=== PATIENT | male | born 1995 | race Caucasian/White ===

== ENCOUNTER 2016-06-25 08:46 | Emergency (ER) | payer SELFPAY ==
[2016-06-25 08:55] VITALS: BP 140/73
[2016-06-25] MEDS ORDERED: Ketorolac INJ* 60 MG/2 ML VIAL IM ONE (09:14)
[2016-06-25] MEDS ORDERED: Diazepam TAB(*) 5 MG PO ONE (09:14)
--- NOTE | 2016-06-25 15:29 | ED ---
I, Gerry,Len, scribed for Alvarez Gonzáles MD on 06/25/16 at 0915 . Back Pain - HPI Summary HPI Summary: This 21 y/o male presents to ED for acute, intermittent mid back pain/spasm since yesterday. Pt states that he was sitting couch at the time of onset. Pt denies any dysuria or pain with BM. No back injury or fall. Pt works at [employer], and pt suggests possibility of strain at his work. Ibuprofen provides little relief. Rest make it better, and exertion or movement make it worse. Pt does not have any primary care established. - History of Current Complaint Chief Complaint: EDBackInjuryPain Stated Complaint: BACK PAIN Time Seen by Provider: 06/25/16 08:58 Hx Obtained From: Patient, Medical Records Onset/Duration: Sudden Onset, Still Present Onset/Duration: Started Days Ago, Atraumatic, Still Present Timing: Intermittent Back Pain Location: Is Discrete @ - mid back Pain Intensity: 6 Pain Scale Used: 0-10 Numeric Character: Spasmodic Aggravating Symptom(s): Movement Alleviating Symptom(s): Rest Associated Signs And Symptoms: Positive: Negative - Allergies/Home Medications Allergies/Adverse Reactions: Allergies Allergy/AdvReac Type Severity Reaction Status Date / Time No Known Allergies Allergy Verified 06/25/16 08:55 PMH/Surg Hx/FS Hx/Imm Hx Psychiatric History: Reports: Hx Anxiety, Hx Depression, Other Psychiatric Issues/Disorders - ADD Denies: Hx Eating Disorder, Hx of Violent Episodes Against Others Infectious Disease History: No Infectious Disease History: Denies: Traveled Outside the [place] in Last 30 Days - Family History Known Family History: Positive: Other - Positive for EtOH abuse and bipolar d/ o. - Social History Occupation: Employed Full-time Alcohol Use: None Hx Substance Use: No Substance Use Type: Reports: None Hx Tobacco Use: Yes Smoking Status (MU): Heavy Every Day Tobacco Smoker Review of Systems Negative: Fever Negative: Erythema Negative: Sore Throat Negative: Chest Pain Negative: Shortness Of Breath Negative: Abdominal Pain, Vomiting, Nausea Negative: dysuria, hematuria Positive: Other - back pain. Negative: Myalgia Negative: Rash All Other Systems Reviewed And Are Negative: Yes Physical Exam - Summary Physical Exam Summary: Constitutional: Well-developed, Well-nourished, Alert. (-) Distressed Skin: Warm, Dry HENT: Eyes: Conjunctiva normal Neck: Musculoskeletal ROM normal neck. (-) JVD, (-) Stridor, (-) Tracheal deviation Cardio: Rhythm regular, rate normal, Heart sounds normal; Intact distal pulses ; The pedal pulses are 2+ and symmetric. Radial pulses are 2+ and symmetric. (- ) Murmur Pulmonary/Chest wall: Effort normal. (-) Respiratory distress, (-) Wheezes, (-) Rales Abd: Soft. (-) Tenderness, (-) Distension, (-) Guarding, (-) Rebound Musculoskeletal: (-) Edema Lymph: (-) Cervical adenopathy Neuro: Alert, Oriented x3, Strength normal, (-) Sensory deficit. Psych: Mood and affect Normal Triage Information Reviewed: Yes Vital Signs On Initial Exam: Initial Vitals Temp Pulse Resp BP Pulse Ox 98.2 F 82 16 140/73 100 06/25/16 08:48 06/25/16 08:48 06/25/16 08:48 06/25/16 08:48 06/25/16 08:48 Vital Signs Reviewed: Yes Diagnostics - Vital Signs Vital Signs Temp Pulse Resp BP Pulse Ox 06/25/16 08:48 98.2 F 82 16 140/73 100 - Laboratory Lab Statement: Any lab studies that have been ordered have been reviewed, and results considered in the medical decision making process. Back Pain Course/Dx - Course Assessment/Plan: This 21 y/o male presents to ED with chief compliant of intermittent, spasmotic mid back pain since yesterday. Pt states that he was sitting in a couch at time of onset, and denies any recent back injury or fall. 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 He denies any prior back issues. During his ED course, he was symptomatically treated with toradol and diazepam, and his symptoms improved. Pt was discharged with instruction to follow up with his primary doctor. - Diagnoses Provider Diagnoses: Back strain Discharge - Discharge Plan Condition: Good Disposition: HOME Prescriptions: Diazepam TAB(*) [Valium TAB(*)] 2 mg PO TID PRN #6 tab MDD 3 PRN Reason: Pain Scale 6-10 Naproxen TAB* [Naprosyn TAB*] 500 mg PO Q8H PRN #30 tab PRN Reason: Pain - Moderate To Severe Patient Education Materials: Naproxen (By mouth), Diazepam (By mouth), Low Back Strain (ED) Forms: *Work Release Referrals: [facility] [Outside] - 2 Days Sudhir Waddell MD [Primary Care Provider] - 2 Days The documentation as recorded by the Gerry juardo Soohyun accurately reflects the service I personally performed and the decisions made by me, Alvarez Gonzáles MD.
== END 2016-06-25 11:20 | disposition home or self-care (01) ==
LOC: ED 08:46
DX: S29.012A Strain of muscle and tendon of back wall of thorax, initial encounter (principal); F41.9 Anxiety disorder, unspecified; F98.8 Other specified behavioral and emotional disorders with onset usually occurring in childhood and adolescence; F17.200 Nicotine dependence, unspecified, uncomplicated; X58.XXXA Exposure to other specified factors, initial encounter; Y92.9 Unspecified place or not applicable
CPT/HCPCS: 96372; 99282; A9270-GY; J1885

== ENCOUNTER → 2016-10-30 13:20 | Emergency (ER) | payer SELFPAY ==
[2016-10-30 13:41] VITALS: BP 114/67
--- NOTE | 2016-10-30 14:52 | ED ---
Upper Extremity Pain - HPI Summary HPI Summary: Patient works at [employer] and struck his shoulder against the underside of a vehicle when he was grabbing [employer], and had intense pain in his shoulder. He denies previous injury to this shoulder. He has bruising and an abrasion on over the scapula. He has not taken any medication for pain and refuses any here today. He denies N/T in the arm. - History of Current Complaint Chief Complaint: Davidfernandoelia Stated Complaint: RIGHT SHOULDER PAIN Time Seen by Provider: 10/30/16 14:11 Hx Obtained From: Patient Mechanism Of Injury: Blunt Trauma Onset/Duration: Started Hours Ago, Traumatic, Still Present Timing: Constant Severity Initially: Moderate Severity Currently: Severe Pain Location: Shoulder Character: Sharp, Aching Aggravating Factor(s): Movement Alleviating Factor(s): Nothing Associated Signs & Symptoms: Positive: Bruising - with abrasion. Negative: Numbness/Tingling Related History: Dominant Hand Right - Allergies/Home Medications Allergies/Adverse Reactions: Allergies Allergy/AdvReac Type Severity Reaction Status Date / Time No Known Allergies Allergy Verified 06/25/16 08:55 PMH/Surg Hx/FS Hx/Imm Hx Psychiatric History: Reports: Hx Anxiety, Hx Depression, Other Psychiatric Issues/Disorders - ADD Denies: Hx Eating Disorder, Hx of Violent Episodes Against Others Infectious Disease History: No Infectious Disease History: Denies: Traveled Outside the [place] in Last 30 Days - Family History Known Family History: Positive: Other - Positive for EtOH abuse and bipolar d/ o. - Social History Occupation: Employed Full-time Lives: With Family Alcohol Use: None Hx Substance Use: No Substance Use Type: Reports: None Hx Tobacco Use: Yes Smoking Status (MU): Heavy Every Day Tobacco Smoker Cessation Counseling: Patient Advised to Stop Review of Systems Positive: Myalgia. Negative: Decreased ROM, Edema Positive: Bruising Negative: Paresthesia, Numbness All Other Systems Reviewed And Are Negative: Yes Physical Exam Triage Information Reviewed: Yes Vital Signs On Initial Exam: Initial Vitals Temp Pulse Resp BP Pulse Ox 98.9 F 77 20 114/67 98 10/30/16 13:39 10/30/16 13:39 10/30/16 13:39 10/30/16 13:39 10/30/16 13:39 Vital Signs Reviewed: Yes Appearance: Positive: Well-Appearing, Pain Distress, Thin Skin: Positive: Warm, Skin Color Reflects Adequate Perfusion, Dry, Soft Head/Face: Positive: Normal Head/Face Inspection Eyes: Positive: EOMI, UNRULY, Conjunctiva Clear ENT: Positive: Hearing grossly normal Neck: Positive: Supple, Nontender Respiratory/Lung Sounds: Positive: Breath Sounds Present Cardiovascular: Positive: RRR Musculoskeletal: Positive: Strength/ROM Intact, Pain @ - TTP right mid-scapular spine and pain with forward flexion Neurological: Positive: Sensory/Motor Intact, Alert, Oriented to Person Place, Time, NV Bundle Intact Distally Psychiatric: Positive: Affect/Mood Appropriate AVPU Assessment: Alert Diagnostics - Vital Signs Vital Signs Temp Pulse Resp BP Pulse Ox 10/30/16 13:42 98.2 F 75 20 114/67 100 10/30/16 13:39 98.9 F 77 20 114/67 98 - Laboratory Lab Statement: Any lab studies that have been ordered have been reviewed, and results considered in the medical decision making process. - Radiology No standard instances Xray Interpretation: No Acute Changes Radiology Interpretation Completed By: Radiologist Course/Dx - Diagnoses Differential Diagnosis/HQI/PQRI: Positive: Arthritis, Bursitis, Contusion, Fracture (Closed), Hematoma, Strain, Sprain Provider Diagnoses: Contusion of right scapular region Discharge - Discharge Plan Condition: Stable Disposition: HOME Patient Education Materials: Contusion in Adults (ED) Referrals: Bairon LIU,Sudhir Gonzalez [Primary Care Provider] - Additional Instructions: Please use ice and rest to allow your arm to heal. Follow-up with your primary care provider if symptoms persist. Return to the emergency department if symptoms worsen.
--- NOTE | 2016-10-30 15:08 | RAD ---
HISTORY: Trauma, scapular spine pain COMPARISONS: None VIEWS: 4, Frontal internal rotation, external rotation, outlet, and axillary views of the right shoulder FINDINGS: BONE DENSITY: Normal. BONES: There is no displaced fracture. JOINTS: There is no arthropathy. ALIGNMENT: There is no dislocation. SOFT TISSUES: Unremarkable. OTHER FINDINGS: None. IMPRESSION: NO ACUTE OSSEOUS INJURY. IF SYMPTOMS PERSIST, RECOMMEND REPEAT IMAGING.
== END | disposition home or self-care (01) ==
LOC: ED 13:20
DX: S40.011A Contusion of right shoulder, initial encounter (principal); F17.200 Nicotine dependence, unspecified, uncomplicated; W22.8XXA Striking against or struck by other objects, initial encounter; Y92.9 Unspecified place or not applicable; F98.8 Other specified behavioral and emotional disorders with onset usually occurring in childhood and adolescence
CPT/HCPCS: 99281

== ENCOUNTER 2016-11-22 15:12 | Emergency (ER) | payer BC ==
[2016-11-22] MEDS ORDERED: Cyclobenzaprine TAB* 10 MG PO ONE (15:28)
[2016-11-22] MEDS ORDERED: Ketorolac INJ* 60 MG/2 ML VIAL IM ONE (15:28)
[2016-11-22] MEDS ORDERED: Ibuprofen TAB* 400 MG PO ONE (15:34)
--- NOTE | 2016-11-22 15:44 | ED ---
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 He has a history of back pain and this feels similar but a little higher. The pain feels spasmotic and is isolated to the left lumbar region. He denies incontinence of urine or stool, no N/T, no difficulty ambulating. - History of Current Complaint Chief Complaint: EDBackInjuryPain Stated Complaint: BACK PAIN Time Seen by Provider: 11/22/16 15:26 Hx Obtained From: Patient Onset/Duration: Gradual Onset Onset/Duration: Started Hours Ago Timing: Constant Back Pain Location: Is Discrete @ - left lumbar muscles Severity Initially: Moderate Severity Currently: Severe Pain Intensity: 10 Character: Sharp, Aching, Spasmodic Aggravating Symptom(s): Movement Alleviating Symptom(s): Nothing Associated Signs And Symptoms: Positive: Negative Related History: Previous Back Injury - Allergies/Home Medications Allergies/Adverse Reactions: Allergies Allergy/AdvReac Type Severity Reaction Status Date / Time No Known Allergies Allergy Verified 06/25/16 08:55 PMH/Surg Hx/FS Hx/Imm Hx Musculoskeletal History: Reports: Hx Back Problems Psychiatric History: Reports: Hx Anxiety, Hx Depression, Other Psychiatric Issues/Disorders - ADD Denies: Hx Eating Disorder, Hx of Violent Episodes Against Others Infectious Disease History: No Infectious Disease History: Denies: Traveled Outside the [place] in Last 30 Days - Family History Known Family History: Positive: Other - Positive for EtOH abuse and bipolar d/ o. - Social History Occupation: Employed Full-time Lives: With Family Alcohol Use: Occasionally Hx Substance Use: No Substance Use Type: Reports: Marijuana Hx Tobacco Use: Yes Smoking Status (MU): Heavy Every Day Tobacco Smoker Cessation Counseling: Patient Advised to Stop Review of Systems Negative: Chest Pain Negative: Shortness Of Breath Negative: Abdominal Pain Positive: Myalgia Negative: Weakness, Paresthesia, Numbness All Other Systems Reviewed And Are Negative: Yes Physical Exam Triage Information Reviewed: Yes Vital Signs On Initial Exam: Initial Vitals Temp Pulse Resp BP Pulse Ox 101.7 F 92 16 103/55 99 11/22/16 15:20 11/22/16 15:20 11/22/16 15:20 11/22/16 15:20 11/22/16 15:20 Vital Signs Reviewed: Yes Appearance: Positive: Well-Appearing, Well-Nourished, Pain Distress Skin: Positive: Warm, Skin Color Reflects Adequate Perfusion, Dry, Soft Head/Face: Positive: Normal Head/Face Inspection Eyes: Positive: EOMI, UNRULY, Conjunctiva Clear ENT: Positive: Hearing grossly normal Respiratory/Lung Sounds: Positive: Breath Sounds Present Cardiovascular: Positive: RRR Abdomen Description: Positive: Nontender, Soft Musculoskeletal: Positive: Limited @ - +right SLR, Pain @ - TTP left lumbar spine muscles Neurological: Positive: Sensory/Motor Intact, Alert, Oriented to Person Place, Time, NV Bundle Intact Distally Psychiatric: Positive: Affect/Mood Appropriate AVPU Assessment: Alert Diagnostics - Vital Signs Vital Signs Temp Pulse Resp BP Pulse Ox 11/22/16 15:24 101.7 F 92 16 103/55 99 11/22/16 15:20 101.7 F 92 16 103/55 99 - Laboratory Lab Statement: Any lab studies that have been ordered have been reviewed, and results considered in the medical decision making process. Re-Evaluation - Re-Evaluation First Eval Re-Evaluation Time: 16:20 Change: Improved - pain decreased Back Pain Course/Dx - Diagnoses Differential Diagnosis/HQI/PQRI: Positive: Aneurysm, Cauda Equina Syndrome, Compressive Cord Syndrome, Fracture, Herniated Disc, Strain, Sprain Provider Diagnoses: Low back strain Discharge - Discharge Plan Condition: Stable Disposition: HOME Prescriptions: Cyclobenzaprine TAB* [Flexeril 10 MG TAB*] 10 mg PO TID PRN #15 tab PRN Reason: Pain Ibuprofen TAB* [Motrin TAB* 800 MG] 800 mg PO TID PRN #30 tab PRN Reason: Pain Patient Education Materials: Low Back Strain (ED) Forms: *Work Release Referrals: Bairon LIU,Sudhir Gonzalez [Primary Care Provider] - Additional Instructions: Please use the muscle relaxer provided and rest your back. Apply heat or ice as needed. Follow-up with your primary care provider if symptoms do not begin to improve in 3-5 days. Return to the emergency department is symptoms worsen.
[2016-11-22 16:40] VITALS: BP 103/55
== END 2016-11-22 16:40 | disposition home or self-care (01) ==
LOC: ED 15:12
DX: S39.012A Strain of muscle, fascia and tendon of lower back, initial encounter (principal); X50.9XXA Other and unspecified overexertion or strenuous movements or postures, initial encounter; Y93.89 Activity, other specified; Y92.59 Other trade areas as the place of occurrence of the external cause; Y99.0 Civilian activity done for income or pay; F41.9 Anxiety disorder, unspecified; F98.8 Other specified behavioral and emotional disorders with onset usually occurring in childhood and adolescence; F12.90 Cannabis use, unspecified, uncomplicated; F17.210 Nicotine dependence, cigarettes, uncomplicated
CPT/HCPCS: 96372; 99282; A9270-GY; J1885

== ENCOUNTER 2016-12-22 16:57 | Emergency (ER) | payer BC ==
[2016-12-22 19:26] VITALS: BP 115/58
[2016-12-22] MEDS ORDERED: Lidocaine/Epineph/Tetraca SOL* (LET solution) 4 ML BTL TOPICAL ONE (20:26)
[2016-12-22] MEDS ORDERED: LORazepam TAB(*) 1 MG PO ONE (20:27)
--- NOTE | 2016-12-22 22:16 | ED ---
Laceration/Wound HPI - HPI Summary HPI Summary: Patient presents with laceration to the chin from a metal bar on a trampoline. Denies SOB, pain in jaw, head pain, hitting head, LOC or loose teeth. Denies other symptoms. Laceration occurred approx 2 hours ago. Minimal bleeding. Laceration is approx 2cm in length, .5cm wideth and superficial. Not on blood thinners. - History of Current Complaint Stated Complaint: CHIN LAC Time Seen by Provider: 12/22/16 19:44 Hx Obtained From: Patient Mechanism of Injury: Sharp/Blunt Trauma Onset/Duration: Sudden Onset Aggravating: Nothing Timing: Intermittent Episodes Lasting: Onset Severity: Moderate Current Severity: Moderate Pain Intensity: 0 Pain Scale Used: 0-10 Numeric Associated Signs & Symptoms: Negative - Allergy/Home Medications Allergies/Adverse Reactions: Allergies Allergy/AdvReac Type Severity Reaction Status Date / Time No Known Allergies Allergy Verified 12/22/16 17:04 PMH/Surg Hx/FS Hx/Imm Hx Previously Healthy: Yes Musculoskeletal History: Reports: Hx Back Problems Psychiatric History: Reports: Hx Anxiety, Hx Depression, Other Psychiatric Issues/Disorders - ADD Denies: Hx Eating Disorder, Hx of Violent Episodes Against Others - Immunization History Hx Pertussis Vaccination: No Immunizations Up to Date: Unable to Obtain/Confirm Infectious Disease History: No Infectious Disease History: Denies: Traveled Outside the [place] in Last 30 Days - Family History Known Family History: Positive: Other - Positive for EtOH abuse and bipolar d/ o. - Social History Occupation: Employed Full-time Lives: With Family Alcohol Use: None Hx Substance Use: No Substance Use Type: Reports: None Hx Tobacco Use: Yes Smoking Status (MU): Heavy Every Day Tobacco Smoker Review of Systems Constitutional: Negative Eyes: Negative Respiratory: Negative Gastrointestinal: Negative Positive: no symptoms reported, see HPI Musculoskeletal: Negative Positive: Other - 2 cm laceration Neurological: Negative Psychological: Normal All Other Systems Reviewed And Are Negative: Yes Physical Exam Triage Information Reviewed: Yes Vital Signs On Initial Exam: Initial Vitals Temp Pulse Resp BP Pulse Ox 98 F 87 16 113/73 98 12/22/16 17:05 12/22/16 17:05 12/22/16 17:05 12/22/16 17:05 12/22/16 17:05 Vital Signs Reviewed: Yes Appearance: Positive: Well-Appearing, Well-Nourished Skin: Positive: Warm, Skin Color Reflects Adequate Perfusion Eyes: Positive: Normal, EOMI, UNRULY ENT: Positive: Pharynx normal Neck: Positive: Supple, No Lymphadenopathy Respiratory/Lung Sounds: Positive: Clear to Auscultation, Breath Sounds Present Cardiovascular: Positive: Normal, RRR, Pulses are Symmetrical in both Upper and Lower Extremities Musculoskeletal: Positive: Normal, Strength/ROM Intact Neurological: Positive: Normal, Sensory/Motor Intact, Alert, Oriented to Person Place, Time, Speech Normal Psychiatric: Positive: Normal AVPU Assessment: Alert Diagnostics - Vital Signs Vital Signs Temp Pulse Resp BP Pulse Ox 12/22/16 20:33 16 12/22/16 19:25 98.9 F 66 115/58 12/22/16 17:05 98 F 87 16 113/73 98 - Laboratory Lab Statement: Any lab studies that have been ordered have been reviewed, and results considered in the medical decision making process. Laceration Repair Course/Dx - Course Course Of Treatment: Patient presents with laceration to the chin. no other concerns or complaints at this time. Timeout obtained. Cleansed wound. Irrigated with 20CC's normal saline. Lidocaine without epi as local anesthetic - 2ml. 5-0 non-absorbable prolene. 6 sutures placed using simple interrupted technique. Patient tolerated well. Cleaned and dressed wound with bandaid. Sutures out in 5 days. Return precautions given. Patient OK with discharge. - Differential Dx Differental Diagnoses: Avulsion, Laceration, Suture Removal - Clinical Impression Provider Diagnoses: Laceration Discharge - Discharge Plan Condition: Stable Disposition: HOME Patient Education Materials: Care For Your Stitches (ED), Facial Laceration (ED ) Referrals: Bairon LIU,Sudhir Gonzalez [Primary Care Provider] - Additional Instructions: If you develop redness, streaks of red around the wound, swelling, abnormal drainage or you develop a fever - you need to come back to the ED right away. Suture removal in 5 days. Continue to keep covered x 24 hours, then leave open to air.
== END 2016-12-22 22:12 | disposition home or self-care (01) ==
LOC: ED 16:57
DX: S01.81XA Laceration without foreign body of other part of head, initial encounter (principal); W22.8XXA Striking against or struck by other objects, initial encounter; Y93.44 Activity, trampolining; Y92.89 Other specified places as the place of occurrence of the external cause; F17.210 Nicotine dependence, cigarettes, uncomplicated
CPT/HCPCS: 99282; A9270-GY

== ENCOUNTER 2017-01-03 06:33 | Emergency (ER) | payer SELFPAY ==
[2017-01-03] MEDS ORDERED: Ketorolac INJ* 30 MG/ML 1 ML VIAL IV ONE (07:34)
[2017-01-03 07:59] LABS: Hematocrit 47 % (42-52); Hemoglobin 15.9 g/dl (14.0-18.0); Mean Corpuscular HGB Conc 34 g/dl (31-36); Mean Corpuscular Hemoglobin 30 pg (27-31); Mean Corpuscular Volume 89 fL (80-94); Mean Platelet Volume 9 um3 (7.4-10.4); Red Blood Count 5.31 10^6/ul (4.0-5.4); Red Cell Distribution Width 13 % (10.5-15); White Blood Count 6.7 10^3/ul (3.5-10.8)
[2017-01-03 08:10] LABS: Albumin 4.6 g/dL (3.2-5.2); BUN/Creatinine Ratio 17.4 (8-20); Calcium 9.9 mg/dL (8.6-10.3); EGFR African American 104.3 (>60); EGFR Non-African American 81.1 (>60); Globulin 2.3 g/dL (2-4); Total Bilirubin 0.4 mg/dL (0.2-1.0); Total Protein 6.9 g/dL (6.4-8.9)
[2017-01-03 08:13] LABS: Urine Bilirubin Negative (Negative); Urine Glucose Negative (Negative); Urine Nitrite Negative (Negative)
[2017-01-03] MEDS ORDERED: Iohexol 300* (CONTRAST) 10 ML SDV IV ONE (08:21)
--- NOTE | 2017-01-03 08:48 | RAD ---
HISTORY: Head trauma COMPARISONS: None TECHNIQUE: Multiple contiguous axial CT scans were obtained of the head without intravenous contrast. FINDINGS: HEMORRHAGE/INFARCT: There is no hemorrhage or acute infarct. MASSES/SHIFT: There is no mass or shift. EXTRA-AXIAL SPACES: There are no extra-axial fluid collections. SULCI AND VENTRICLES: The sulci and ventricles are normal in size and position for the patient's stated age. CEREBRUM: There are no focal parenchymal abnormalities. BRAINSTEM: There are no focal parenchymal abnormalities. CEREBELLUM: There are no focal parenchymal abnormalities. VESSELS: The vessels are grossly normal. PARANASAL SINUSES: The paranasal sinuses are clear. ORBITS: The orbits are unremarkable. BONES AND SOFT TISSUE: No bone or soft tissue abnormalities are noted. OTHER: None IMPRESSION: NO ACUTE INTRACRANIAL PATHOLOGY.
--- NOTE | 2017-01-03 08:51 | RAD ---
INDICATION: Trauma. COMPARISON: There are no prior studies available for comparison. TECHNIQUE: Contiguous axial sections were obtained from the skull base through the T1 vertebra. Images were reconstructed in the sagittal and coronal planes. FINDINGS: There is straightening of the cervical spine with loss of the normal cervical lordosis. No prevertebral soft tissue swelling or fracture is seen. Disc spaces appear maintained. There is no evidence for spinal canal or neural foraminal narrowing. IMPRESSION: STRAIGHTENING OF THE CERVICAL SPINE, NO EVIDENCE FOR FRACTURE OR SUBLUXATION.
--- NOTE | 2017-01-03 09:03 | RAD ---
HISTORY: Subacute trauma, right-sided rib and abdominal pain COMPARISONS: None TECHNIQUE: Multiple contiguous axial CT scans were obtained of the chest, abdomen, and pelvis after the administration of intravenous contrast. Coronal and sagittal multiplanar reformations are submitted for review.. Oral contrast was not administered. Delayed images were obtained through the abdomen and pelvis. FINDINGS: CHEST NECK AND THYROID: The lower neck and thyroid are unremarkable. CHEST WALL: There is no lower cervical, axillary, or supraclavicular lymphadenopathy by size criteria. HEART AND PERICARDIUM: The heart is unremarkable. AORTA AND PULMONARY VASCULATURE: The aorta and pulmonary vasculature are normal. MEDIASTINUM: There is no mediastinal lymphadenopathy by size criteria. ANGEL: There is no hilar lymphadenopathy by size criteria. AIRWAY AND ESOPHAGUS: The airway is unremarkable, without endobronchial filling defect. The esophagus is grossly normal. LUNG PARENCHYMA: The lungs are clear. PLEURA: No pleural abnormalities are noted. BONES AND SOFT TISSUES: No bone or soft tissue abnormalities are noted. ABDOMEN/PELVIS: LIVER: The liver is normal in shape, size, contour, and attenuation. BILE DUCTS: There is no intrahepatic or extrahepatic biliary dilatation. GALLBLADDER: The gallbladder is normal, without pericholecystic inflammatory change. PANCREAS: The pancreas is normal, without mass or ductal dilatation. SPLEEN: Normal in size and appearance. UPPER GI TRACT: Evaluation of the gastrointestinal tract is limited by incomplete gastric distention. The upper GI tract is unremarkable. SMALL BOWEL \T\ MESENTERY: The small bowel is normal in contour, course, and caliber. There is no obstruction or dilatation. COLON: The colon is normal in contour, course, caliber. There is no pericolonic inflammatory change. ADRENALS: Normal bilaterally. KIDNEYS: The kidneys are normal in shape, size, contour, and axis. There is no hydronephrosis or nephrolithiasis. BLADDER: The bladder is collapsed and is not well evaluated PELVIC ORGANS: The prostate gland is normal. The seminal vesicles are symmetric. AORTA: The aorta is normal. IVC: Unremarkable LYMPH NODES: There is no lymphadenopathy by size criteria. ABDOMINAL WALL: There is no evidence for abdominal wall hernia. BONES: The bony skeleton is grossly unremarkable. OTHER: There is no free intraperitoneal fluid or free intraperitoneal gas. There is no active arterial extravasation. IMPRESSION: NO ACUTE CT PATHOLOGY OF THE VISUALIZED CHEST, ABDOMEN, OR PELVIS.
[2017-01-03 09:41] VITALS: BP 98/60
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
== END 2017-01-03 09:25 | disposition home or self-care (01) ==
LOC: ED 06:33
DX: S13.4XXA Sprain of ligaments of cervical spine, initial encounter (principal); S20.211A Contusion of right front wall of thorax, initial encounter; T14.8 Other injury of unspecified body region; S06.0X9A Concussion with loss of consciousness of unspecified duration, initial encounter; R51 Headache; R10.9 Unspecified abdominal pain; R11.0 Nausea; M25.559 Pain in unspecified hip; F17.210 Nicotine dependence, cigarettes, uncomplicated; V49.9XXA Car occupant (driver) (passenger) injured in unspecified traffic accident, initial encounter; Y93.89 Activity, other specified; Y92.89 Other specified places as the place of occurrence of the external cause
CPT/HCPCS: 36415; 70450; 71260; 72125; 74177; 80053; 81003; 85025; 99282; J1885; Q9967

== ENCOUNTER 2017-07-31 14:21 | Emergency (ER) | payer BC ==
--- NOTE | 2017-07-31 15:48 | RAD ---
INDICATION: Right-sided rib pain and cough COMPARISON: None. TECHNIQUE: 5 views of the right ribs were obtained. FINDINGS: An external BB marker is seen overlying the right lower hemithorax in the AP projection. It is unclear if this is overlying the patient's anterior posterior surface. No fracture or significant focal osseous abnormality is seen. No pneumothorax is apparent. Limited views demonstrate grossly clear lungs. IMPRESSION: No radiographically apparent displaced rib fracture or pneumothorax. If the patient's symptoms persist, follow-up imaging is recommended.
--- NOTE | 2017-07-31 16:23 | ED ---
Respiratory - HPI Summary HPI Summary: 22-year-old male presents with right sided head pain for the past month. He states he was seen at and told to start amoxicillin but he did not do such. He states the pain is intermittent. He hasn't taken anything for his pain. He denies any ear pain or drainage from his ears. He states his pain is located right around his right ear. He denies any neck pain. He states yesterday he developed a cough with right-sided rib pain. He admits occasional shortness breath with the cough. He states that the pain sometimes radiates down to his back. He denies any loss of bowel or bladder. He denies any fevers. He denies any saddle anesthesia. He has never had this pain before. He denies any injury. He hasn't tried any for his pain. - History of Current Complaint Chief Complaint: EDGeneral Stated Complaint: RIGHT SIDE PAIN Time Seen by Provider: 07/31/17 15:02 Pain Intensity: 6 - Allergy/Home Medications Allergies/Adverse Reactions: Allergies Allergy/AdvReac Type Severity Reaction Status Date / Time No Known Allergies Allergy Verified 01/03/17 06:44 PMH/Surg Hx/FS Hx/Imm Hx Endocrine/Hematology History: Denies: Hx Diabetes Musculoskeletal History: Reports: Hx Back Problems Psychiatric History: Reports: Hx Anxiety, Hx Depression, Other Psychiatric Issues/Disorders - ADD Denies: Hx Eating Disorder, Hx of Violent Episodes Against Others Infectious Disease History: No Infectious Disease History: Denies: Traveled Outside the [place] in Last 30 Days - Family History Known Family History: Positive: Other - Positive for EtOH abuse and bipolar d/ o. - Social History Alcohol Use: None Hx Substance Use: No Substance Use Type: Reports: None Hx Tobacco Use: Yes Smoking Status (MU): Heavy Every Day Tobacco Smoker Review of Systems Negative: Fever Negative: Chest Pain Positive: Cough, Other - right rib pain. Negative: Shortness Of Breath Positive: Headache All Other Systems Reviewed And Are Negative: Yes Physical Exam Triage Information Reviewed: Yes Vital Signs On Initial Exam: Initial Vitals Temp Pulse Resp BP Pulse Ox 98.9 F 90 15 129/64 98 07/31/17 14:26 07/31/17 14:26 07/31/17 14:26 07/31/17 14:26 07/31/17 14:26 Vital Signs Reviewed: Yes Appearance: Positive: Well-Appearing Skin: Positive: Warm, Dry Head/Face: Positive: Normal Head/Face Inspection Eyes: Positive: Normal, EOMI, UNRULY, Conjunctiva Clear ENT: Positive: Pharynx normal, TMs normal, Other - TM right edematous and erythematous Respiratory/Lung Sounds: Positive: Clear to Auscultation, Breath Sounds Present , Other - tenderness right lower ribs Cardiovascular: Positive: Normal, RRR Abdomen Description: Positive: Nontender, Soft. Negative: CVA Tenderness (R), CVA Tenderness (L) Bowel Sounds: Positive: Present Musculoskeletal: Positive: Normal Neurological: Positive: Normal Psychiatric: Positive: Normal Diagnostics - Vital Signs Vital Signs Temp Pulse Resp BP Pulse Ox 07/31/17 14:26 98.9 F 90 15 129/64 98 - Laboratory Lab Statement: Any lab studies that have been ordered have been reviewed, and results considered in the medical decision making process. - Radiology rib Xray Interpretation: No Acute Changes Radiology Interpretation Completed By: Radiologist Disposition - Course Course Of Treatment: 22-year-old male presents with right sided head pain for the past month. He states he was seen at and told to start amoxicillin but he did not do such. He states the pain is intermittent. He hasn't taken anything for his pain. He denies any ear pain or drainage from his ears. He states his pain is located right around his right ear. He denies any neck pain. He states yesterday he developed a cough with right-sided rib pain. He admits occasional shortness breath with the cough. He states that the pain sometimes radiates down to his back. He denies any loss of bowel or bladder. He denies any fevers. He denies any saddle anesthesia. He has never had this pain before. He denies any injury. He hasn't tried any for his pain. On exam has tenderness of tragus. Had the earache he right ear due to serum impaction. Emergency room removed canal edematous erythematous. Will treat with Ciprodex. Tenderness to right ribs on exam. Lungs clear to auscultation. X-ray ribs and normal. Flu negative. Will treat with ibuprofen. Patient understands and agrees with plan. - Differential Dx - Cardiopulmonary Differential Diagnoses - Cardiopulmonary: Bronchitis, Other - rib fracture, headache, otitis media, otitis externa - Diagnoses Provider Diagnoses: Rib pain, Otitis externa, Cough Discharge - Discharge Plan Condition: Good Disposition: HOME Patient Education Materials: Otitis Externa (ED), Acute Bronchitis (ED) Referrals: Bairon LIU,Sudhir Gonzalez [Primary Care Provider] - Additional Instructions: Use 4 drops twice a day for 7 days Follow up with primary in a week to make sure resolving Take tyenlol or ibuprofen for pain every 6 hours Return to ED if develop any new or worsening symptoms
[2017-07-31] MEDS ORDERED: Ciproflox/Dexameth OTIC.SUSP* 7.5 ML BTL RIGHT EAR ONE (16:39)
[2017-07-31 17:33] VITALS: BP 124/66
== END 2017-07-31 17:32 | disposition home or self-care (01) ==
LOC: ED 14:21
DX: R07.81 Pleurodynia (principal); H60.90 Unspecified otitis externa, unspecified ear; R05 Cough; R51 Headache; F17.210 Nicotine dependence, cigarettes, uncomplicated
CPT/HCPCS: 87502; 99282; A9270-GY

== ENCOUNTER 2018-08-30 16:30 | Emergency (ER) | payer BC ==
--- NOTE | 2018-08-30 18:02 | ED ---
Upper Extremity Pain - HPI Summary HPI Summary: 23-year-old male presents with right shoulder pain for the past couple days. He states he works 3 jobs and uses his shoulder alot in all of his jobs. He is right-handed. He states his previous injury the area 3 years ago that he dislocated his shoulder and pop it backed in. He denies any numbness or tingling. He states he has difficulty lifting objects. Has been taking ibuprofen for the pain. States would like a work note. - History of Current Complaint Chief Complaint: EDExtremityUpper Stated Complaint: RIGHT SHOULDER HURTS PER PT Time Seen by Provider: 08/30/18 17:38 - Allergies/Home Medications Allergies/Adverse Reactions: Allergies Allergy/AdvReac Type Severity Reaction Status Date / Time No Known Allergies Allergy Verified 08/30/18 17:07 Home Medications: Home Medications Ibuprofen TAB* [Advil TAB*] 200 mg PO Q6H PRN 08/30/18 [History Confirmed ] PMH/Surg Hx/FS Hx/Imm Hx Endocrine/Hematology History: Denies: Hx Diabetes Cardiovascular History: Denies: Hx Myocardial Infarction Musculoskeletal History: Reports: Hx Back Problems Psychiatric History: Reports: Hx Anxiety, Hx Depression, Other Psychiatric Issues/Disorders - ADD Denies: Hx Eating Disorder, Hx of Violent Episodes Against Others Infectious Disease History: No Infectious Disease History: Denies: Traveled Outside the [place] in Last 30 Days - Family History Known Family History: Positive: Other - Positive for EtOH abuse and bipolar d/ o. - Social History Alcohol Use: Occasionally Hx Substance Use: No Substance Use Type: Reports: Marijuana Hx Tobacco Use: Yes Smoking Status (MU): Heavy Every Day Tobacco Smoker Review of Systems Negative: Fever Negative: Chest Pain Negative: Shortness Of Breath Positive: Myalgia - right shoulder pain All Other Systems Reviewed And Are Negative: Yes Physical Exam Triage Information Reviewed: Yes Vital Signs On Initial Exam: Initial Vitals Temp Pulse Resp BP Pulse Ox 99.2 F 90 16 121/63 98 08/30/18 17:03 08/30/18 17:03 08/30/18 17:03 08/30/18 17:03 08/30/18 17:03 Vital Signs Reviewed: Yes Appearance: Positive: Well-Appearing Skin: Positive: Warm, Dry Head/Face: Positive: Normal Head/Face Inspection Eyes: Positive: Normal, Conjunctiva Clear ENT: Positive: Pharynx normal Respiratory/Lung Sounds: Positive: Clear to Auscultation, Breath Sounds Present Cardiovascular: Positive: Normal, RRR Musculoskeletal: Positive: Strength/ROM Intact - right shoulder with pain, Other - pos peñaloza, neg yearsgons, tenderness over posterior right shoulder, good pulses, sensation grossly intact Neurological: Positive: Normal Psychiatric: Positive: Normal Diagnostics - Vital Signs Vital Signs Temp Pulse Resp BP Pulse Ox 08/30/18 17:03 99.2 F 90 16 121/63 98 - Laboratory Lab Statement: Any lab studies that have been ordered have been reviewed, and results considered in the medical decision making process. - Radiology shoulder Radiology Interpretation Completed By: Radiologist Summary of Radiographic Findings: IMPRESSION: Limited 2 views of the right shoulder demonstrates no fracture. Course/Dx - Course Course Of Treatment: 23-year-old male presents with right shoulder pain for the past couple days. He states he works 3 jobs and uses his shoulder alot in all of his jobs. He is right-handed. He states his previous injury the area 3 years ago that he dislocated his shoulder and pop it backed in. He denies any numbness or tingling. He states he has difficulty lifting objects. Has been taking ibuprofen for the pain. States would like a work note. On exam tenderness on the right posterior shoulder. Neurovascular intact. Positive peñaloza. X-ray normal. will give work note. Told no improvement to follow-up with orthopedic. Patient understands agrees plan. - Diagnoses Differential Diagnosis/HQI/PQRI: Positive: Fracture (Closed), Strain, Sprain Provider Diagnoses: Right shoulder pain Discharge - Sign-Out/Discharge Documenting (check all that apply): Patient Departure Patient Received Moderate/Deep Sedation with Procedure: No - Discharge Plan Condition: Good Disposition: HOME Patient Education Materials: Shoulder Pain (ED) Forms: *Work Release Referrals: Bairon LIU,Sudhir Gonzalez [Primary Care Provider] - Maggi Min MD [Medical Doctor] - Additional Instructions: Take Tylenol and ibuprofen every 6 hours as needed for pain Ice/heat Can rest for one day and then need to do range of motion activities for shoulder Follow up with ortho if no improvement Return to ED if develop any new or worsening symptoms - Billing Disposition and Condition Condition: GOOD Disposition: Home
[2018-08-30 18:49] VITALS: BP 133/60
== END 2018-08-30 18:48 | disposition home or self-care (01) ==
LOC: ED 16:30
DX: M25.511 Pain in right shoulder (principal); F17.200 Nicotine dependence, unspecified, uncomplicated
CPT/HCPCS: 99282

== ENCOUNTER → 2018-09-18 15:54 | Emergency (ER) | payer BC, OTHER ==
[~2018-09-18 15:54] MED LIST: Ketorolac INJ* 30 MG/ML 1 ML VIAL IM ONE
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
[2018-09-18 19:15] VITALS: BP 128/74
== END | disposition home or self-care (01) ==
LOC: ED 15:54
DX: S49.91XA Unspecified injury of right shoulder and upper arm, initial encounter (principal); V89.2XXA Person injured in unspecified motor-vehicle accident, traffic, initial encounter; Y92.410 Unspecified street and highway as the place of occurrence of the external cause; Z72.0 Tobacco use
CPT/HCPCS: 96372; 99281; J1885

== ENCOUNTER 2018-12-21 11:26 | Emergency (ER) | payer BC ==
[2018-12-21 13:24] VITALS: BP 132/68
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
== END 2018-12-21 13:23 | disposition home or self-care (01) ==
LOC: ED 11:26
DX: S80.01XA Contusion of right knee, initial encounter (principal); F17.210 Nicotine dependence, cigarettes, uncomplicated; W22.8XXA Striking against or struck by other objects, initial encounter; Y92.9 Unspecified place or not applicable
CPT/HCPCS: 99282